=== PATIENT | female | born 1960 | race Caucasian/White ===

== ENCOUNTER 2018-07-28 19:13 | Emergency (ER) | payer MEDICAID ==
--- NOTE | 2018-07-28 19:51 | EDPHY ---
H & P Time Seen by Provider: 07/28/18 19:31 HPI/ROS: CHIEF COMPLAINT: Medical clearance for prison HISTORY OF PRESENT ILLNESS: 57-year-old female 4 days s/p lumbar kyphoplasty presents for medical clearance for prison. She went to the police department today asking for nursing home and they took her to the homeless nursing home. When she arrived at the nursing home, the nursing home staff told the police that the pt was giving them the incorrect name. They did a search and found that there was a warrant for her arrest. They brought her here for medical clearance for prison since she just had surgery. She is complaining of lower back pain and some bleeding from the bandages. Also c/o constipation, not taking narcotics. No abd pain. REVIEW OF SYSTEMS: complete 10 point ROS reviewed and is negative except for the noted elements in the HPI - Physical Exam Exam: General Appearance: Alert, pleasant Eyes: Pupils equal and round, no conjunctival pallor ENT, Mouth: Mucous membranes moist Neck: Normal inspection Respiratory: Lungs are clear to auscultation Cardiovascular: Regular rate and rhythm Gastrointestinal: Abdomen is soft and nontender Back: Surgical sites are clean dry and intact, no surrounding erythema, warmth or tenderness Neurological: A&O, motor 5/5 of the lower extremities, sensory intact to light touch, normal gait Skin: Warm and dry Extremities: Normal inspection Psychiatric: Mood and affect normal Constitutional: Initial Vital Signs Temperature (C) 37.1 C 07/28/18 19:25 Heart Rate 95 07/28/18 19:25 Respiratory Rate 16 07/28/18 19:25 Blood Pressure 158/88 H 07/28/18 19:25 O2 Delivery Mode Room Air O2 (L/minute) 96 Medical Decision Making ED Course/Re-evaluation: The surgical bandage was removed by me. No evidence of infection or hemorrhage. The wound was re-bandaged by the ED RN sterilely. Magnesium citrate given for constipation. On discharge, pt c/o BLE weakness and numbness. I reassessed her and neuro exam remains normal, including motor/sensation. Walks with a steady gait, no evidence of neuro compromise. - Data Points Medications Given: Discontinued Medications Magnesium Citrate (Magnesium Citrate) 300 ml PO EDNOW ONE Stop: 07/28/18 19:53 Last Admin: 07/28/18 20:03 Dose: 300 ml Departure - Departure Disposition: Home, Routine, Self-Care Clinical Impression: Medical clearance for prison, Constipation Condition: Good Instructions: Additional Information, Constipation (ED), Kyphoplasty (DC) Referrals: Deena Ham MD [Medical Doctor] - As per Instructions
[2018-07-28] MEDS ORDERED: MAGNESIUM CITRATE 300 ML BOTTLE PO ONE (19:52)
[2018-07-28 19:59] VITALS: BP 135/81
== END 2018-07-28 20:14 | disposition home or self-care (01) ==
DX: Z02.89 Encounter for other administrative examinations (principal); K59.00 Constipation, unspecified